=== PATIENT | female | born 1970 | race Caucasian/White ===

== ENCOUNTER 2020-01-03 10:48 | Outpatient (CLI) | payer BC, SELFPAY ==
[2020-01-03 11:27] LABS: SARS-CoV-2 Ag Positive (Negative)
== END 2020-01-03 10:49 | disposition home or self-care (01) ==
LOC: CHSLAB 10:52
PROVIDERS: PCP Internal Medicine; Visit Provider Internal Medicine
DX: U07.1 COVID-19 (principal)
CPT/HCPCS: 87426

== ENCOUNTER 2020-01-13 12:13 | Outpatient (CLI) | payer BC, SELFPAY ==
--- NOTE | ~2020-01-13 | XR_ITS ---
XR chest 2V DATE: 01/13/2020 13:58 INDICATION: Productive brownish cough. History of Covid-positive diagnosis 10 days ago. TECHNIQUE: PA and lateral views COMPARISON: None FINDINGS: There are patchy infiltrates in the left mid and lower lung field and to a lesser extent th e right lower lung. Normal heart size. No hilar or mediastinal enlargement. No pleural effusion or pneumothorax. IMPRESSION: Bilateral pneumonia, left greater than right Reviewed, dictated and finalized at location A. [employer] SOFTWARE DEVELOPER
[2020-01-13 13:53] LABS: Basophils Absolute Auto 0.01 K/mm3 (0.00-0.10); Basophils Percent Auto 0.2 % (0.0-1.0); Eosinophils Absolute Auto 0.08 K/mm3 (0.02-0.50); Eosinophils Percent Auto 1.4 % (1.0-6.0); Hematocrit 38.4 % (35.0-49.0); Hemoglobin 12.6 g/dL (12.0-15.0); Immature Granulocyte Absolute 0.02 K/mm3 (0.00-0.00); Immature Granulocyte Percent A 0.3 % (0.0-0.0); Lymphocytes Absolute Auto 0.99 K/mm3 (1.10-4.50); Lymphocytes Percent Auto 16.8 % (18.0-42.0); Mean Corpuscular HGB Conc 32.8 g/dL (32.0-36.0); Mean Corpuscular Hemoglobin 30.1 pg (27.0-31.0); Mean Corpuscular Volume 91.9 fL (78.0-102.0); Mean Platelet Volume 10.2 fl (9.2-11.8); Monocytes Absolute Auto 0.32 K/mm3 (0.10-0.90); Monocytes Percent Auto 5.4 % (2.0-11.0); Neutrophils Absolute Auto 4.5 K/mm3 (1.7-7.2); Neutrophils Percent Auto 75.9 % (50.0-70.0); Platelet Count Result 256 K/mm3 (150-420); Red Blood Count 4.18 M/mm3 (4.20-5.40); Red Cell Distribution Width 12.3 % (11.6-14.4); White Blood Count 5.9 K/mm3 (4.8-10.8)
[2020-01-13 14:11] LABS: Alanine Aminotransferase 22 U/L (14-59); Alkaline Phosphatase 79 U/L (46-116); Anion Gap 8 mmol/L (8-16); Aspartate Amino Transferase 16 U/L (15-37); Bilirubin,Total 0.4 mg/dL (0.00-1.00); Blood Urea Nitrogen 10 mg/dL (7-18); Calcium 8.4 mg/dL (8.5-10.1); Carbon Dioxide 29 mmol/L (21-32); Chloride 104 mmol/L (98-108); Estimated Glomerular Filt Rate > 60; Glucose 95 mg/dL (70-99); Osmolality Calculated 291 mOsm/kg (285-295); Potassium 3.7 mmol/L (3.5-5.1); Sodium 141 mmol/L (136-145); Total Protein 7.1 g/dL (6.4-8.2)
[2020-01-13 14:23] LABS: D Dimer 0.51 mg/L (0.19-0.50)
[2020-01-14 13:43] LABS: SARS-CoV-2 RNA PCR Positive
== END 2020-01-13 12:14 | disposition home or self-care (01) ==
LOC: CHSLAB 12:17
PROVIDERS: PCP Internal Medicine; Visit Provider Internal Medicine
DX: U07.1 COVID-19 (principal); R05 Cough
CPT/HCPCS: 36415; 71046; 80053; 85025; 85380; 87635; C9803; U0003

== ENCOUNTER 2020-01-13 14:55 | Emergency (ER) | payer BC, SELFPAY ==
--- NOTE | ~2020-01-13 | CT_ITS ---
EXAMINATION: CTA chest PE protocol DATE: 01/13/2020 16:10 INDICATION: Cough. COVID-19 pneumonia. TECHNIQUE: Computed tomography angiography (CTA) of the chest was performed with 100 mL Omnipaque-350 intravenous contrast timed to evaluate the pulmonary arteries. Coronal maximum intensity projection 3D-reconstructions were created by the technologist. Automated exposure control and iterative reconst ruction technique were employed. The dose-length product was 478.21 mGy-cm. COMPARISON: Chest 2 views 01/13/2020 FINDINGS: There are patchy groundglass opacities in all lobes with a peripheral and lower lung predom inance, consistent with pneumonia. No pleural effusion. The heart size is normal. No pericardial effu terri. There is a small sliding hiatal hernia. There is no pulmonary embolus. There is mild bilateral hilar lymphadenopathy. There is mild thoracic spondylosis. IMPRESSION: 1. No pulmonary embolus. 2. Multifocal pneumonia. 3. Small sliding hiatal hernia. 4. Mild bilateral hilar lymphadenopathy, likely reactive. Reviewed, dictated and finalized at location A. [employer]KER
[2020-01-13 14:58] VITALS: BP 133/84; PULSE 84; RESP 16; TEMP 37.2; O2SAT 99
[2020-01-13 15:34] LABS: Pregnancy On Board Control Positive; Urine Pregnancy Test Negative
--- NOTE | 2020-01-13 16:27 | ED.RECABL ---
HPI - Recheck/Abnormal Lab/Rx General Chief Complaint: Recheck/Abnormal Lab/Rx Stated Complaint: sent from dr ambrocio Source: patient Mode of arrival: ambulatory Limitations: no limitations History of Present Illness HPI narrative: This is a 49-year-old female that presents after after she spoke to her primary care physician and had blood work performed which showed an elevated D-dimer. The patient was recently diagnosed with COVID approximately 10 days ago currently has a mild cough with no shortness of breath, primary care physician was concerned that she had few episodes of hemoptysis. Currently there is no fever chills no shortness of breath no chest pain or pressure no abdominal pain no nausea vomiting. complaint: abnormal lab Initial visit (ago): hour(s) Symptoms since prior visit: no new symptoms Treatments prior to arrival: given antibiotics on Related Data Home Medications Medication Instructions Recorded Confirmed No Home Medications 01/13/20 01/13/20 Allergies Allergy/AdvReac Type Severity Reaction Status Date / Time Unable to Assess Allergy Verified 01/13/20 15:26 Review of Systems Review of Systems: All systems reviewed & are unremarkable except as noted in HPI and below PMFSH Past Medical History Medical History Patient denies medical problems Exam Narrative: Exam Narrative: reassessment of patient continues to rest comfortably with no acute symptoms mild cough no shortness of breath and reviewed the CTA with patient and reassured her that there was no evidence of a pulmonary embolism. Const: General: no acute distress and alert Orientation/consciousness: patient oriented x3 HENMT: Head: normal to inspection Eyes: Conjunctivae: conjunctivae normal Pupils: Equal, round and reactive pupils present EOM: EOMs intact bilaterally Neck: Neck: normal visual inspection, no lymphadenopathy and no meningeal signs Chest: Chest palpation & inspection: normal inspection of the chest Resp: Effort & Inspection: normal respiratory effort GI: Auscultation: normal bowel sounds : General: Yes no CVA tenderness Back/Spine/Pelvis: Back: no CVA tenderness Skin: General skin exam: normal color Rashes: no rashes Neuro: General: patient oriented x3 Extrem: General: normal to inspection and no pedal edema Psych: Mental Status: mental status grossly normal Course Course Emergency Course: After reassessment patient patient continues to rest comfortably with no shortness of breath and reviewed the CTA with the patient and Reassured the patient that there was no evidence of pulmonary embolism. Vital Signs Vital signs: Vital Signs Temperature 37.2 C 01/13/20 14:58 Pulse Rate 84 01/13/20 14:58 Respiratory Rate 16 01/13/20 14:58 Blood Pressure 133/84 01/13/20 14:58 Pulse Oximetry 99 01/13/20 14:58 Temperature 37.2 C 01/13/20 14:58 Pulse Rate 84 01/13/20 14:58 Respiratory Rate 16 01/13/20 14:58 Blood Pressure 133/84 01/13/20 14:58 Pulse Oximetry 99 01/13/20 14:58 MDM - Recheck/Abnormal Lab/Rx Lab Data Labs: Lab Results 01/13/20 Range/Units 15:20 Urine Test Negative Critical Care Time Critical Care Time Critical Care Time: No Discharge Plan Discharge Clinical Impression: Acute viral syndrome Patient Disposition: Home, Self-Care Condition: Stable Instructions: Antibiotic Form Additional Instructions: continue medication prescribed by primary care physician, and follow-up with primary care physician if symptoms persist or worsen. Prescriptions: No Action No Home Medications RF: 0 Follow-up/Referrals: Stephen Ambrocio MD [Primary Care Provider] - Time of Disposition: 16:31
[2020-01-13 16:50] VITALS: O2SAT 99
== END 2020-01-13 16:50 | disposition home or self-care (01) ==
PROVIDERS: Emergency Provider Emergency Medicine; PCP Internal Medicine
DX: B34.9 Viral infection, unspecified (principal)
CPT/HCPCS: 71275; 81025; 99282; 99284; Q9965

== ENCOUNTER 2020-01-26 09:38 | Outpatient (CLI) | payer BC, SELFPAY ==
--- NOTE | ~2020-01-26 | XR_ITS ---
EXAMINATION: XR chest 2V DATE: 01/26/2020 09:51 INDICATION: Cough and pneumonia. COVID-19 positive. TECHNIQUE: Frontal and lateral views of the chest were obtained. COMPARISON: Chest 2 views 01/13/2020 FINDINGS: There are mild airspace opacities in the mid and lower lung zones, left worse than right. N o pleural effusion or pneumothorax. The heart size is normal. IMPRESSION: 1. Mild airspace opacities in the mid and lower lung zones with interval improvement, consistent with pneumonia. Reviewed, dictated and finalized at location B. [employer] IMPRESSION: 1. Mild airspace opacities in the mid and lower lung zones with interval improv ement, consistent with pneumonia.
== END 2020-01-26 09:39 | disposition home or self-care (01) ==
PROVIDERS: PCP Internal Medicine; Visit Provider Internal Medicine
DX: J18.9 Pneumonia, unspecified organism (principal); R05 Cough
CPT/HCPCS: 71046

== ENCOUNTER 2022-06-11 08:31 | Outpatient (CLI) | payer BC, SELFPAY ==
--- NOTE | ~2022-06-11 | MM_ITS ---
EXAMINATION: MM screening riya BI w viet HISTORY: Screening mammogram TECHNIQUE: Craniocaudal and mediolateral oblique 3-D tomosynthesis images were obtained and synthetic 2-D images were generated. CAD analysis was submitted and interpreted. COMPARISON: No prior mammogram is available for comparison at this institution. BREAST PARENCHYMAL COMPOSITION: The breasts are heterogeneously dense, which may obscure small masses . FINDINGS: There is no evidence of suspicious mass, calcification, or architectural distortion to sugg est malignancy in either breast. There has been no suspicious interval change. IMPRESSION: 1. No mammographic evidence of malignancy. 2. Recommend routine screening mammography in one year. BI-RADS Category 1: Negative Reviewed, dictated and finalized at location A.
== END 2022-06-11 08:32 | disposition home or self-care (01) ==
LOC: CHSIMG 08:35
PROVIDERS: PCP Internal Medicine; Visit Provider Internal Medicine
DX: Z12.31 Encounter for screening mammogram for malignant neoplasm of breast (principal)
CPT/HCPCS: 77063; 77067

== ENCOUNTER 2022-06-26 09:30 | Outpatient (CLI) | payer BC, SELFPAY ==
--- NOTE | ~2022-06-26 | US_ITS ---
EXAMINATION: US breast BI limited HISTORY: Intermittent nipple discharge and palpable lump of the right axilla TECHNIQUE: Limited bilateral subareolar breast ultrasound and right axillary ultrasound is performed. FINDINGS: No sonographic correlate is identified in either breast for the reported intermittent nippl e discharge. There is a right axillary lymph node corresponding to the palpable abnormality of concer n. No suspicious cystic or solid mass is identified. IMPRESSION: No suspicious sonographic correlate is identified for the patient's bilateral nipple discharge or rig ht axillary lump. Further evaluation at this time should be based on clinical assessment. Continued f ollow-up physical examination is recommended. BI-RADS Category 2: Benign finding(s). Reviewed, dictated and finalized at location A. IMPRESSION: No suspicious sonographic correlate is identified for the patient's bilateral n ipple discharge or right axillary lump. Further evaluation at this time should be based on clinical assessment. Continued follow-up physical examination is re commended. BI-RADS Category 2: Benign finding(s).
== END 2022-06-26 09:31 | disposition home or self-care (01) ==
LOC: CHSIMG 09:34
PROVIDERS: PCP Internal Medicine; Visit Provider Nurse Practitioner Family
DX: R22.31 Localized swelling, mass and lump, right upper limb (principal); N64.52 Nipple discharge
CPT/HCPCS: 76642